=== PATIENT | female | born 1940 | race Caucasian/White ===

== ENCOUNTER 2021-08-12 15:12 | Emergency (ER) | payer MEDICARE, BC ==
[~2021-08-12] VITALS: Ht 154.9 cm; Wt 77.7 kg
[2021-08-12 15:34] VITALS: TEMP 98.1
[2021-08-12] MEDS ORDERED: ELIQUIS 5MG PO (15:46)
[2021-08-12] MEDS ORDERED: TOPROL XL 50MG50 MG PO (15:46)
[2021-08-12] MEDS ORDERED: NORVASC 5MG5 MG/TAB PO (15:46)
[2021-08-12] MEDS ORDERED: PEPCID 20MG TAB20 MG PO (15:47)
[2021-08-12] MEDS ORDERED: ZETIA 10MG TAB10 MG PO (15:55)
[2021-08-12 16:49] VITALS: BP 137/95; PULSE 73
== END 2021-08-12 16:47 | disposition home or self-care (01) ==
LOC: COL.ER 15:12
DX: S49.92XA Unspecified injury of left shoulder and upper arm, initial encounter (principal); W18.30XA Fall on same level, unspecified, initial encounter